=== PATIENT | male | born 1960 | race Caucasian/White ===

== ENCOUNTER 2016-10-11 21:16 | Inpatient (IN) | payer MEDICAID, MEDICARE ==
[2016-10-11 21:32] LABS: URINE APPEARANCE CLEAR; URINE BILIRUBIN NEGATIVE (NEGATIVE); URINE BLOOD LARGE (NEGATIVE); URINE COLOR YELLOW; URINE GLUCOSE (UA) NEGATIVE (NEGATIVE); URINE KETONE NEGATIVE (NEGATIVE); URINE LEUKOCYTE ESTERASE SMALL (NEGATIVE); URINE NITRITE NEGATIVE (NEGATIVE)
[2016-10-11 21:36] LABS: URINE PROTEIN 300 mg/dL (NEGATIVE)
--- NOTE | 2016-10-11 21:41 | Emergency Department Record ---
History of Present Illness - General Chief complaint: Male Urogenital Problem Stated complaint: URINATING BLOOD,FEVER Time Seen by Provider: 10/11/16 21:34 Source: Patient Mode of Arrival: Wheelchair Limitations: No limitations - History of Present Illness Initial comments: 56 yo male presents with fever, three days of discomfort with urination. Today he thinks he had some blood in the urine. The symptoms started on Thursday. He is having discomfort with urination. He has had some intermittent fevers since then. He feels like he must urinate frequently and it feels like incomplete emptying. Last night he had sweats and chills. He denies a history UTI, stones, urologic surgery. No vomiting or diarrhea. MD Complaint: Dysuria Onset/Timin -: Days(s) Radiation: None Consistency: Constant Improves with: None Worsens with: None Reports: Dysuria, Fever, Nausea/vomiting - Related Data Home Medications Medication Instructions Recorded Confirmed Last Taken Clonidine HCl 0.4 mg PO QHS 10/11/16 10/11/16 Unknown Diazepam [Valium] 10 mg PO TID 10/11/16 10/11/16 Unknown Lisinopril [Zestril] 1 tab PO BID 10/11/16 10/11/16 Unknown Metformin HCl 500 mg PO BID 10/11/16 10/11/16 Unknown Trazodone HCl 600 mg PO DAILY 10/11/16 10/11/16 Unknown Allergies Allergy/AdvReac Type Severity Reaction Status Date / Time hydrocodone [From Vicodin] Allergy NAUSEA Verified 10/11/16 21:32 Travel Screening - Travel/Exposure Within Last 30 Days Have you traveled within the last 30 days?: No - Travel/Exposure Within Last Year Have you traveled outside the [place] in the last year?: No - Additonal Travel Details Have you been exposed to anyone with a communicable illness?: No - Travel Symptoms Symptom Screening: None Review of Systems Constitutional: Reports: Chills, Fever, Night sweats Eyes: Denies: Eye discharge ENT: Denies: Congestion, Throat pain Respiratory: Denies: Cough, Dyspnea, Hemoptysis, Stridor, Wheezes Cardiovascular: Denies: Chest pain, Palpitations, Syncope Endocrine: Denies: Fatigue, Polydipsia, Polyuria Gastrointestinal: Denies: Abdominal pain, Diarrhea, Nausea, Vomiting Genitourinary: Reports: Dysuria, Frequency, Hematuria, Retention, Urgency. Denies: Discharge Musculoskeletal: Denies: Arthralgia, Back pain Skin: Denies: Bruising, Change in color, Rash Neurological: Denies: Headache Psychiatric: Reports: Anxiety (daily panic attacks) Hematological/Lymphatic: Denies: Easy bleeding, Easy bruising, Swollen glands Past Medical History - SOCIAL HISTORY Smoking Status: Never smoker Alcohol Use: None Drug Use: None - RESPIRATORY Hx Respiratory Disorders: No - CARDIOVASCULAR Hx Cardio Disorders: Yes Hx Hypertension: Yes - NEURO Hx Neuro Disorders: No - GI Hx GI Disorders: No - Hx Genitourinary Disorders: No - ENDOCRINE Hx Endocrine Disorders: Yes Hx Diabetes: Yes - MUSCULOSKELETAL Hx Musculoskeletal Disorders: No - PSYCH Hx Psych Problems: No - HEMATOLOGY/ONCOLOGY Hx Hematology/Oncology Disorders: No Family Medical History Any Significant Family History?: No Physical Exam - General General Appearance: Alert, Oriented x3, Cooperative, No acute distress, Anxious (due to panic attack) Limitations: No limitations - Head Head exam: Normal inspection - Eye Eye exam: Normal appearance. negative: Conjunctival injection, Periorbital swelling - ENT ENT exam: Normal exam Ear exam: Normal external inspection Nasal Exam: Normal inspection Mouth exam: Normal external inspection - Neck Neck exam: Normal inspection, Full ROM. negative: Tenderness - Respiratory Respiratory exam: Normal lung sounds bilaterally. negative: Respiratory distress - Cardiovascular Cardiovascular Exam: Normal rhythm, Tachycardia Peripheral Pulses: 2+: Radial (R), Radial (L) - GI/Abdominal GI/Abdominal exam: Soft. negative: Distended, Tenderness - Rectal Rectal exam: Deferred - exam: Normal inspection, Other (Normal external appearance of the testicle). negative: Circumcision, Scrotal swelling, Testicular tenderness, Urethral discharge - Extremities Extremities exam: Normal inspection, Full ROM, Normal capillary refill. negative: Tenderness - Back Back exam: Reports: Normal inspection, Full ROM. Denies: Muscle spasm, Rash noted, Tenderness - Neurological Neurological exam: Alert, Normal gait, Oriented X3, Reflexes normal - Psychiatric Psychiatric exam: Normal affect, Normal mood - Skin Skin exam: Dry, Intact, Normal color, Warm Course Vital Signs 10/11/16 21:19 Temperature 100.6 F H Pulse Rate 117 H Respiratory 26 H Rate Pulse Ox 95 - Reevaluation(s) Reevaluation #1: The UA was reviewed and is consistent with UTI 10/11/16 22:00 Reevaluation #2: The CBC WBC count is 15. The CMP was reviewed. No acute changes of the renal function. 10/11/16 22:14 Reevaluation #3: The CT scan was reviewed. Tiny right lower pole stone that is non obstructing, mild bilateral hydro may represent reflux, Left ureteral stranding CW urinary tract infection, diverticulosis without diverticulitis 10/11/16 22:43 Reevaluation #4: 10/11/16 22:49I discussed the findings with the patient. I recommend admission for IV antibiotics and follow up of the culture Medical Decision Making - Lab Data Result diagrams: 10/11/16 21:45 10/11/16 21:45 Disposition Disposition: Admit Clinical Impression: Urinary tract infection, Pyelonephritis Disposition: Still a Patient at [facility] Decision to Admit: Admit from ER Decision to Admit Date: 10/11/16 Decision to Admit Time: 22:48 Condition: (2) Stable Forms: Patient Portal Access Time of Disposition: 22:48
[2016-10-11] MEDS ORDERED: CEFTRIAXONE SODIUM 1 GM in 0.9 % SODIUM CHLORIDE 100ML 100 ML IVPB ONE (21:46)
[2016-10-11 21:47] LABS: URINE BACTERIA 1+; URINE MUCUS HEAVY; URINE RBC >50 (NONE SEEN); URINE WBC >50 (0-2/hpf)
[2016-10-11 22:03] LABS: BASO % 0.1 % (0-6); EOS % 0.3 % (0-6); GRAN % 78.8 % (47-80); HEMATOCRIT 49.1 % (42.0-52.0); HEMOGLOBIN 15.9 gm/dl (14.0-18.0); LYMPH % 10.8 % (16-45); MEAN CELL VOLUME 90.6 fl (81-97); MEAN CORPUSCULAR HEMOGLOBIN 29.3 pg (27-33); MEAN CORPUSCULAR HGB CONC 32.4 g/dl (32-36); MEAN PLATELET VOLUME 12.2 fl (7.4-10.4); PLATELET COUNT 166 K/uL (130-400); RED BLOOD COUNT 5.42 M/uL (4.40-5.70); RED CELL DISTRIBUTION WIDTH 15.8 % (11.5-14.5); WHITE BLOOD COUNT W/O DIFF 15.1 K/uL (4.2-12.2)
[2016-10-11 22:09] LABS: BLOOD UREA NITROGEN 14 mg/dL (9-20); EST GLOMERULAR FILTRATION RATE > 60 ml/min; GLUCOSE,RANDOM 135 mg/dL (70-110)
[2016-10-11] MEDS ORDERED: CLONIDINE HCL 0.1 MG TABLET PO ONE ×2 (22:10→23:07)
[2016-10-11] MEDS ORDERED: 0.9 % SODIUM CHLORIDE 1,000 ML BAG IV ONE (22:13)
[2016-10-11] MEDS ORDERED: ACETAMINOPHEN 500 MG TABLET PO ONE (22:29)
[2016-10-11] MEDS ORDERED: PHENAZOPYRIDINE HCL 95 MG TABLET PO ONE (22:48)
[2016-10-11] MEDS ORDERED: ACETAMINOPHEN 500 MG TABLET PO PRN (23:59)
[2016-10-11] MEDS ORDERED: CEFTRIAXONE SODIUM 2 GM in 0.9 % SODIUM CHLORIDE 100ML 100 ML IVPB SCH (23:59)
[2016-10-11] MEDS ORDERED: IBUPROFEN 400 MG TABLET PO PRN (23:59)
[2016-10-12] MEDS ORDERED: NYSTATIN 15 GM TUBE TOP PRN (00:02)
[2016-10-12] MEDS: 0.9 % SODIUM CHLORIDE 1000ML 1,000 ML IV PRN ×3 (00:30→22:06)
[2016-10-12] MEDS ORDERED: TRAZODONE 50 MG TABLET PO SCH (01:00)
[2016-10-12] MEDS: ALBUTEROL HFA 8 GM INHALER INH PRN ×3 (01:09→20:41)
[2016-10-12] MEDS: METFORMIN 500 MG TABLET PO SCH ×3 (01:40→21:20)
[2016-10-12] MEDS: LISINOPRIL 20 MG TABLET PO SCH ×3 (01:41→21:18)
[2016-10-12] MEDS: TRAZODONE 50 MG TABLET PO SCH ×2 (01:41→21:20)
[2016-10-12 06:38] LABS: HEMATOCRIT 44.5 % (42.0-52.0); HEMOGLOBIN 14.1 gm/dl (14.0-18.0); MEAN CELL VOLUME 91.8 fl (81-97); MEAN CORPUSCULAR HEMOGLOBIN 29.1 pg (27-33); MEAN CORPUSCULAR HGB CONC 31.7 g/dl (32-36); MEAN PLATELET VOLUME 11.8 fl (7.4-10.4); PLATELET COUNT 163 K/uL (130-400); RED BLOOD COUNT 4.85 M/uL (4.40-5.70); RED CELL DISTRIBUTION WIDTH 15.8 % (11.5-14.5); WHITE BLOOD COUNT W/O DIFF 12.6 K/uL (4.2-12.2)
[2016-10-12 06:48] LABS: ANION GAP 6.1 (7-16); BLOOD UREA NITROGEN 16 mg/dL (9-20); CARBON DIOXIDE 33.9 mmol/L (22-30); EST GLOMERULAR FILTRATION RATE > 60 ml/min; GLUCOSE,RANDOM 149 mg/dL (70-110)
[2016-10-12] MEDS: DIAZEPAM 5 MG TABLET PO SCH ×4 (06:55→21:21)
[2016-10-12 07:11] LABS: ANISOCYTOSIS 1+; PLATELET ESTIMATE NORMAL (NORMAL)
[2016-10-12] MEDS: CEFTRIAXONE SODIUM 2 GM in 0.9 % SODIUM CHLORIDE 100ML 100 ML IVPB SCH ×2 (08:35→21:24)
[2016-10-12] MEDS ORDERED: METFORMIN 500 MG TABLET PO SCH (10:00)
[2016-10-12] MEDS ORDERED: LISINOPRIL 5 MG TABLET PO SCH (10:00)
[2016-10-12] MEDS: CIPROFLOXACIN HCL 500 MG TABLET PO SCH ×2 (10:11→21:48)
[2016-10-12] MEDS: ENOXAPARIN 40 MG/0.4 ML SYR SQ SCH (10:12)
[2016-10-12] MEDS ORDERED: PHENAZOPYRIDINE HCL 95 MG TABLET PO ONE (19:07)
[2016-10-12] MEDS ORDERED: CLONIDINE HCL 0.1 MG TABLET PO SCH (22:00)
[2016-10-13] MEDS: DIAZEPAM 5 MG TABLET PO SCH (06:19)
[2016-10-13] MEDS: ALBUTEROL HFA 8 GM INHALER INH PRN (06:32)
--- NOTE | 2016-10-13 07:57 | CT SCAN REPORT ---
EXAM: CT OF THE ABDOMEN AND PELVIS HISTORY: FEVER AND HEMATURIA. TECHNIQUE: Axial CT scan of the abdomen and pelvis was performed without oral or IV contrast. Comparison: None. FINDINGS: No calcified gallstones seen within the gallbladder. There is a single small calcification in the lower pole of the right kidney likely representing a currently nonobstructing intrarenal calculus on the right. None seen on the left. There is mild hydronephrosis bilaterally and also mild prominence of both ureters, left slightly greater than right. No definite ureteral calculus seen on either side and no bladder calculus evident. There is , however, some soft tissue stranding surrounding much of the left ureter. This could either be sequela of recent urinary tract obstruction on the left or could be related to urinary tract infection. The mild bilateral hydronephrosis could be on the basis of bilateral reflux or perhaps bladder outlet obstruction. The bladder diffusely has a thick walled appearance, but this may just be due to incomplete distention and the bladder does not appear significantly distended currently. The prostate is mildly enlarged measuring about 5.8 cm in transverse x 4.9 cm in AP diameters and contains a small amount of calcification. Correlation with serum PSA and physical exam suggested. Evaluation of the bowel and viscera is very limited without oral or IV contrast. Given this limitation, no definite hepatic, splenic, adrenal, pancreatic, or renal mass identified. There are small bilateral inguinal hernias containing adipose tissue, but no bowel. Thick walled appearance of portions of the colon may simply be due to incomplete distention. The cecum is somewhat inverted. The appendix is visualized and appears of normal caliber with no appendicitis evident. No free intraperitoneal air or free intraperitoneal fluid evident. There is a small periumbilical anterior abdominal wall hernia containing adipose tissue, but no bowel. IMPRESSION: 1. SINGLE SMALL NONOBSTRUCTING CALCULUS LOWER POLE RIGHT KIDNEY. NO OTHER URINARY TRACT CALCULI IDENTIFIED. 2. HOWEVER, THERE IS SOME MILD HYDRONEPHROSIS AND HYDROURETER BILATERALLY. THERE IS ALSO SOME NONSPECIFIC STRANDING OF SOFT TISSUE SURROUNDING THE COURSE OF THE MAJORITY OF THE LEFT URETER SUGGESTING INFLAMMATORY CHANGE AND CLINICAL CORRELATION TO URINARY TRACT INFECTION SUGGESTED. THE MILD BILATERAL HYDRONEPHROSIS AND HYDROURETER COULD BE ON THE BASIS OF REFLUX OR EPISODES OF OBSTRUCTION. 3. THICK WALLED APPEARANCE OF THE URINARY BLADDER MAY SIMPLY BE DUE TO INCOMPLETE DISTENTION ALTHOUGH COULD ALSO BE SEEN WITH CYSTITIS. 4. MILDLY ENLARGED PROSTATE. 5. DIVERTICULOSIS LEFT SIDE OF THE COLON, BUT NO DIVERTICULITIS EVIDENT. 6. THE APPENDIX IS NEGATIVE. NO FREE AIR OR FREE FLUID EVIDENT. 7. SMALL BILATERAL INGUINAL HERNIAS CONTAINING ADIPOSE TISSUE AND SMALL PERIUMBILICAL ANTERIOR ABDOMINAL WALL HERNIA CONTAINING ADIPOSE TISSUE. JOB NUMBER: [id number] [facility]
[2016-10-13] MEDS: 0.9 % SODIUM CHLORIDE 1000ML 1,000 ML IV PRN (09:21)
[2016-10-13] MEDS: CEFTRIAXONE SODIUM 2 GM in 0.9 % SODIUM CHLORIDE 100ML 100 ML IVPB SCH (09:22)
[2016-10-13] MEDS: LISINOPRIL 20 MG TABLET PO SCH (09:28)
[2016-10-13] MEDS: METFORMIN 500 MG TABLET PO SCH (09:28)
[2016-10-13] MEDS: CIPROFLOXACIN HCL 500 MG TABLET PO SCH (09:28)
[2016-10-13] MEDS: ENOXAPARIN 40 MG/0.4 ML SYR SQ SCH (09:29)
--- NOTE | 2016-10-13 10:20 | History and Physical Report ---
DATE OF EVALUATION: 10/12/2016 at 12:59 p.m. DATE OF ADMISSION: 10/11/2016 CHIEF COMPLAINT: Frequent urination, fever, chills, and sweats. HISTORY OF CHIEF COMPLAINT: This 50-year-old male presented to the Emergency Department with 3 days of dysuria, oliguria, and fever and sweats. He was going to the bathroom every 10 minutes. He was seen initially in the Emergency Department by Dr. Mc, and diagnosed with pyelonephritis. Started on Rocephin. Admitted to the hospital. Patient's primary doctor is Dr. Osborn. He also has a mental disability since 38 years of age. He is bipolar, social disorder, and sees a psychiatrist, Dr. De Leon in [place] at the [facility]. PAST MEDICAL HISTORY: Hypertension, diabetes, anxiety disorder, and insomnia. PAST SURGICAL HISTORY: He had surgery on his knee 1 year ago at [facility] for sepsis of his knee. It sounds like it spread throughout his body, too. MEDICATIONS ON ADMISSION: Lisinopril 40 mg b.i.d., clonidine 0.4 mg at bedtime, metformin 500 mg b.i.d., Valium 10 mg t.i.d., trazodone 600 mg at bedtime. ALLERGIES: Hydrocodone. FAMILY PSYCHOSOCIAL HISTORY: Unremarkable. He used to smoke cigarettes at 1 pack a day. No alcohol or drug use. REVIEW OF SYSTEMS: HEENT: No upper respiratory infection symptoms, cough, cold, or congestion. Cardiovascular: No chest pain, palpitations, or arrhythmias. Respiratory: No cough, cold or congestion. Gastrointestinal: He did have some nausea and decreased appetite for the last 3 or 4 days. No vomiting or diarrhea. Genitourinary: He had frequency, burning on urination, pain on urination, and sweats and chills. Musculoskeletal: No joint or bony abnormalities. Neurologic: No CVA, paralysis, or paresthesias. Endocrine: He has diabetes. No hypothyroidism. Integument: No rash, ulcers, changes in moles, or yellow skin. PHYSICAL EXAMINATION: VITAL SIGNS: Height 5'11". Weight 297 pounds. Temperature 98. Pulse 50. Blood pressure 157/68. Respiratory rate is 20. Pulse ox 92% on room air. HEENT: Pupils equal, round, and reactive to light and accommodation. Extraocular muscles intact. Throat is clear. Nose is clear. Tympanic membranes oconnor. NECK: Supple. No jugular venous distention. No hepatojugular reflux. No carotid bruits. Thyroid is smooth. CARDIOVASCULAR: Regular rate and rhythm without murmurs, clicks, rubs, or gallops. RESPIRATORY: Clear to auscultation and percussion. ABDOMEN: Soft, nontender, no hepatosplenomegaly. No masses or tenderness. Bowel sounds active. EXTREMITIES: No pitting edema. No cyanosis or clubbing. Full range of motion. Peripheral pulses good. BREASTS: Normal male breasts. He is overweight. GENITALIA: Deferred RECTAL: Deferred. NEUROLOGIC: Cranial nerves II-XII intact. No gross deficits. Sensation normal. Strength normal. Deep tendon reflexes equal bilaterally. Babinski is negative. MENTAL STATUS: Alert and oriented x3. IMPRESSION: 1. Acute pyelonephritis. 2. Bipolar. 3. Hypertension. 4. Diabetes. 5. Anxiety disorder. PLAN: IV Rocephin 1 gram every 12 hours, Cipro 500 mg b.i.d. orally. MTDD
[2016-10-13] MEDS ORDERED: AMLODIPINE BESYLATE 5MG TAB PO SCH (12:45)
--- NOTE | 2016-10-13 13:15 | Discharge Note ---
VTE H&P Assessment - Risk for VTE Risk for VTE: Yes Risk Level: Moderate Risk Assessment Date: 10/12/16 Risk Assessment Time: 08:00 VTE Orders Placed or Will Be Placed: Yes Discharge Medications - Discharge Medications Prescriptions: Ciprofloxacin HCl [Cipro] 500 mg PO Q12HR #20 Amlodipine Besylate [Norvasc] 10 mg PO DAILY #30 tab Home Medications: Ambulatory Orders Clonidine HCl 0.4 mg PO QHS 10/11/16 [Last Taken Unknown] Diazepam [Valium] 10 mg PO TID 10/11/16 [Last Taken Unknown] Lisinopril [Zestril] 40 mg PO BID 10/11/16 [Last Taken Unknown] Metformin HCl 500 mg PO BID 10/11/16 [Last Taken Unknown] Trazodone HCl 600 mg PO DAILY 10/11/16 [Last Taken Unknown] Amlodipine Besylate [Norvasc] 10 mg PO DAILY #30 tab 10/13/16 [Last Taken Unknown] Ciprofloxacin HCl [Cipro] 500 mg PO Q12HR #20 10/13/16 [Last Taken Unknown] Discharge Note - Date Date of Discharge Note: 10/13/16 Condition: (2) Stable Additional Instructions: follow up with Dr Sears tomorrow for bilateral mild hydronephrosis and pylonephritis. patients urine sensitivities pending. stop cigs return to ED if worse follow with primary Dr. Osborn in 7 days Prescriptions: Ciprofloxacin HCl [Cipro] 500 mg PO Q12HR #20 Amlodipine Besylate [Norvasc] 10 mg PO DAILY #30 tab Forms: Patient Portal Access
--- NOTE | 2016-10-15 12:55 | Discharge Summary ---
DATE OF ADMISSION: 10/11/16 DATE OF DISCHARGE: 10/13/2016 DISCHARGE DIAGNOSES: 1. Acute pyelonephritis. Sensitivities of the urine is still pending. Patient refusing to stay in the hospital. 2. Bilateral hydronephrosis, mild. 3. Hypertension. 4. Bipolar disorder. 5. Anxiety. 6. Diabetes mellitus. ATTENDING PHYSICIAN: Jasper Day DO REASON FOR HOSPITALIZATION: Fever, chills, sweats, frequent urination. This 50-year-old male presented to the Emergency Department with 3 days of dysuria, oliguria, fever, and sweats. He is going to the bathroom every 10 minutes. He was initially seen in the Emergency Department by Dr. Mc, diagnosed with pyelonephritis. Started on Rocephin and admitted to the hospital. Patient's primary doctor is Dr. Osborn. He also has a mental disability since 38 years of age. He has bipolar, social disorder, and sees a psychiatrist, Dr. De Leon in [place] at the [facility]. SIGNIFICANT FINDINGS FROM EXAMINATION: 1. The urine showed greater than 50 rbc's, greater than 50 wbc's, 36 epithelial cells, 1+ bacteria, heavy mucin. Urine protein was 300+ mg/dL. His white count was 15,100. Hemoglobin 15.9. His BUN 14, creatinine 1. Sugars are running about 135 to 149 in the hospital. The CAT scan revealed a single, small, nonobstructing calculus in the lower pole, right kidney. No other urinary tract calculi identified. 2. There was some mild hydronephrosis and hydroureter bilaterally. There was also some nonspecific stranding or soft-tissue surrounding the course of the majority of the left ureter suggesting inflammatory changes and clinical correlation as to urinary infection suggested the bilateral hydronephrosis and hydroureter could be on the basis of reflux or episodes of obstruction. Thick-walled appearance of the urinary bed may seem to be due to incomplete distension, although it could also be seen with cystitis. Mildly enlarged prostate. Diverticulosis, left side of colon, but no diverticulitis evident. The appendix is negative. No free air or free fluid evident. Small, bilateral inguinal hernias containing adipose tissue and small periumbilical anterior abdominal wall hernia containing adipose tissue. THERAPY PROVIDED: The patient was started on Rocephin 2 grams every 12 hours and also Cipro 500 mg b.i.d. orally. He was given his home medication. On the last day of admission, he tells me he was on amlodipine for blood pressure. His blood pressure was running high, so restarted him back up on the amlodipine 10 mg once a day. HOSPITAL COURSE: He is better. He is demanding to leave even though I would like to have him stay one more day to wait for the sensitivities of the urine, but he is insisting on leaving. Will set up an outpatient appointment with Urology, Dr. Sears because of the bilateral hydronephrosis, mild, and to decide if anything more needs to be done with that if his infection does not clear. CONDITION AT DISCHARGE: Much improved. DISCHARGE INSTRUCTIONS: Follow up with Dr. Osborn in 7 to 10 days. Follow up with Dr. Sears in 1 day. An outpatient appointment was set up for tomorrow. MEDICATIONS: Cipro 500 mg b.i.d., and continue the home medications of lisinopril 40 mg b.i.d., Klonopin 0.4 mg at bedtime, metformin 500 mg b.i.d., Valium 10 mg t.i.d., trazodone 600 mg at bedtime, amlodipine 10 mg daily. Stop cigarette smoking. MTDD
== END 2016-10-13 15:16 | disposition home or self-care (01) | DRG 690 ==
LOC: ER 21:16 → MEDSURG 23:53
PROVIDERS: ADMIT Emergency Medicine; ATTEND Emergency Medicine
DX: N10 Acute pyelonephritis (principal); I10 Essential (primary) hypertension; E11.9 Type 2 diabetes mellitus without complications; Z79.84 Long term (current) use of oral hypoglycemic drugs; F31.9 Bipolar disorder, unspecified
CPT/HCPCS: 36416; 74176; 80048; 81001; 82948; 85025; 85027; 94640; 96365; 96366; 99223; 99233; 99239; 99285; J1650; J7030

== ENCOUNTER → 2016-10-28 | Day surgery (SDC) | payer MEDICARE ==
[~2016-10-28] MED LIST: *PACU ONLY* KETAMINE HCL 10 MG/ML (20ML) VIAL IV ONE; ALFENTANIL HCL 500 MCG/1ML, 2ML AMP IV ONE; CEFAZOLIN 2 Gram 2 GM/50 ML BAG IVPB ONE; LIDOCAINE 2% MDV (20MG/ML) 20ML VIAL IV ONE; MIDAZOLAM HCL 2MG/2ML VIAL IV ONE; PROPOFOL 10 MG/ML VIAL IV ONE
[2016-10-28 13:43] LABS: BASO % 0.6 % (0-6); EOS % 2.8 % (0-6); HEMATOCRIT 47.6 % (42.0-52.0); LYMPH % 24.3 % (16-45); MEAN CELL VOLUME 90.8 fl (81-97); MEAN CORPUSCULAR HEMOGLOBIN 28.6 pg (27-33); MEAN CORPUSCULAR HGB CONC 31.5 g/dl (32-36); MEAN PLATELET VOLUME 11.4 fl (7.4-10.4); MONO % 7.3 % (0-9); PLATELET COUNT 279 K/uL (130-400); RED BLOOD COUNT 5.24 M/uL (4.40-5.70); WHITE BLOOD COUNT W/O DIFF 9.6 K/uL (4.2-12.2)
[2016-10-28 13:54] LABS: ANION GAP 5.6 (7-16); BLOOD UREA NITROGEN 16 mg/dL (9-20); CARBON DIOXIDE 31.4 mmol/L (22-30); EST GLOMERULAR FILTRATION RATE > 60 ml/min; GLUCOSE,RANDOM 117 mg/dL (70-110)
--- NOTE | 2016-10-31 11:29 | Operative Note ---
DATE OF SURGERY: 10/28/2016 PREOPERATIVE DIAGNOSIS: Hydronephrosis and urosepsis history. POSTOPERATIVE DIAGNOSES: 1. Hydronephrosis and urosepsis history. 2. BPH with obstruction. OPERATION: Cystoscopy and bilateral retrograde pyelogram. Anesthesia: Sedation. Indication: A 56-year-old male recently seen in the clinic who was admitted to the hospital with urosepsis. CT scan demonstrated hydronephrosis; however, a followup ultrasound showed no evidence of hydronephrosis. Nevertheless, with his history of complicated UTI, he presents today for further investigation and management. PROCEDURE: Preop informed consent was obtained. Antibiotics were given. Sedation was administered. The patient was brought to the operating room and placed supine in a lithotomy position with genitalia prepped and draped sterilely. Cystoscopy was performed. The anterior urethra appears unremarkable. Prostatic urethra was entered, and he has trilobar very large prostatic obstruction. The bladder was then entered and inspected systematically. There was [id number] trabeculation seen but the ureteral orifice had normal appearance and positioning as well as orthotopic location and there is no evidence of any urothelial mass or other abnormality. Bilateral retrograde pyelograms were performed under mobile C-arm fluoroscopy and recognizing the limitations in seeing fine detail with mobile fluoroscopy given this patient's large BMI, both ureters and upper tracts showed no evidence of filling defects, stricture, or dilatation and drainage was prompt bilaterally. The bladder was then emptied. The scope was withdrawn. The procedure was terminated. The patient transferred to recovery in stable condition. PLAN: It appears that the patient's sepsis is due to BPH with obstruction. We will start him on combination medical therapy with Flomax and finasteride. He was given those prescriptions today. He will have followup in the urology clinic as instructed. CHERYL
== END | disposition home or self-care (01) ==
LOC: SUR 13:24
PROVIDERS: ATTEND Urology
DX: N40.1 Benign prostatic hyperplasia with lower urinary tract symptoms (principal); N13.30 Unspecified hydronephrosis; I10 Essential (primary) hypertension; E11.9 Type 2 diabetes mellitus without complications; Z79.4 Long term (current) use of insulin; F17.200 Nicotine dependence, unspecified, uncomplicated
CPT/HCPCS: 52000; 00910; 85025; 80048; 76000; 93005; J0690